=== PATIENT | male | born 2005 | race Caucasian/White ===

== ENCOUNTER 2024-12-03 12:51 | Emergency (ER) | payer SELFPAY ==
[~2024-12-03] VITALS: Ht 172.7 cm; Wt 88.0 kg
[2024-12-03 13:05] VITALS: TEMP 36.7; O2SAT 100
[2024-12-03 14:35] LABS: CARBON DIOXIDE 27 mEq/L (21-32); CHLORIDE 103 mEq/L (98-107); POTASSIUM 3.7 mEq/L (3.5-5.1); SODIUM 139 mEq/L (136-145)
[2024-12-03 14:36] LABS: CALCIUM 9.8 mg/dL (8.7-10.4)
[2024-12-03 14:39] LABS: BASOPHILS % 0.4 % (0.0-2.0); EOSINOPHILS % 0.2 % (0.0-5.0); HEMATOCRIT. 43.1 % (42.0-52.0); HEMOGLOBIN. 14.9 g/dL (14.0-18.0); LYMPHOCYTES % 17.1 % (20.0-50.0); MEAN CORPUSCULAR HEMOGLOBIN 31.6 pg (28.0-32.0); MEAN CORPUSCULAR HGB CONC 34.5 g/dL (31.0-37.0); MEAN CORPUSCULAR VOLUME 91.5 fL (80.0-94.0); MEAN PLATELET VOLUME 7.7 fl (7.4-10.4); MONOCYTES % 6.8 % (2.0-8.0); NEUTROPHILS % 75.5 % (40.0-76.0); PLATELET 290 x1000/uL (130-400); RED CELL DISTRIBUTION WIDTH 12.8 % (11.6-14.6); WHITE BLOOD COUNT 7.8 x1000/uL (4.5-11.0)
[2024-12-03 14:40] VITALS: BP 123/76; PULSE 72; RESP 14
[2024-12-03] MEDS: CYCLOBENZAPRINE 10MG TABLET PO ONE (14:40)
[2024-12-03] MEDS: KETOROLAC 30MG/ML VIAL IM ONE (14:40)
[2024-12-03 14:41] LABS: CREATININE 0.7 mg/dL (0.6-1.3); GLUCOSE 98 mg/dL (70-105); UREA NITROGEN BLOOD 12 mg/dL (9-23)
[2024-12-03] MEDS ORDERED: TOPUD MT (14:46)
[2024-12-03] MEDS ORDERED: CYCL5TAB3 MT (14:46)
[2024-12-03] MEDS ORDERED: IBUP-2028 MT (14:46)
== END 2024-12-03 15:27 | disposition home or self-care (01) ==
LOC: ER 12:51
DX: S16.1XXA Strain of muscle, fascia and tendon at neck level, initial encounter (principal); V43.52XA Car driver injured in collision with other type car in traffic accident, initial encounter; Y93.89 Activity, other specified; Y92.89 Other specified places as the place of occurrence of the external cause; Y99.8 Other external cause status
CPT/HCPCS: 99285; 71045; 80048; 85025; 36415; 93005; 96372; J1885